=== PATIENT | male | born 1990 | race Hispanic/Latino ===

== ENCOUNTER 2017-10-23 14:22 | Emergency (ER) | payer SELFPAY ==
[2017-10-23 15:15] VITALS: BP 146/75
--- NOTE | 2017-10-23 16:38 | Emergency Department Report ---
ED Male HPI - General Chief complaint: Urogenital-Male Stated complaint: STD Time Seen by Provider: 10/23/17 16:22 Source: patient Mode of arrival: Ambulatory Limitations: No Limitations - History of Present Illness Initial comments: This is a 27 y.o. male presents for STD screening. His girlfriend told him to get tested because her pH is off and something is wrong. Denies discharge, frequency, urgency, abdominal pain, and back pain. Don't think he need to be treated for something because there is "nothing coming out my pee whole". Admits to STD exposure, history of G/C twice and had discharge and stomach cramps. He is not having those symptoms this time. Radiation: none Severity scale (0 -10): 0 Improves with: none Worsens with: none denies other symptoms - Related Data Sexually active: Yes Allergies Allergy/AdvReac Type Severity Reaction Status Date / Time No Known Allergies Allergy Unverified 10/23/17 15:15 ED Review of Systems ROS: Stated complaint: STD Other details as noted in HPI Constitutional: denies: chills, fever Respiratory: denies: cough, shortness of breath, wheezing Cardiovascular: denies: chest pain, palpitations Gastrointestinal: denies: abdominal pain, nausea, diarrhea Musculoskeletal: denies: back pain, joint swelling, arthralgia Neurological: denies: headache, weakness, paresthesias ED Past Medical Hx - Past Medical History Previous Medical History?: No - Surgical History Past Surgical History?: No - Social History Smoking Status: Current Every Day Smoker Substance Use Type: None ED Physical Exam - General Limitations: No Limitations General appearance: alert, in no apparent distress - Respiratory Respiratory exam: Present: normal lung sounds bilaterally. Absent: respiratory distress - Cardiovascular Cardiovascular Exam: Present: regular rate, normal rhythm. Absent: systolic murmur, diastolic murmur, rubs, gallop - GI/Abdominal GI/Abdominal exam: Present: soft, normal bowel sounds. Absent: distended, tenderness, guarding, rebound, rigid, mass, bruit, pulsatile mass - Neurological Exam Neurological exam: Present: alert, oriented X3, normal gait - Skin Skin exam: Present: warm, dry, intact, normal color. Absent: rash ED Course Vital Signs 10/23/17 15:11 Temperature 98.3 F Pulse Rate 86 Respiratory 18 Rate Blood Pressure 146/75 O2 Sat by Pulse 99 Oximetry ED Medical Decision Making - Medical Decision Making This is a 27 y.o. male presents for STD screening. Denies discharge, frequency, urgency, abdominal pain, and back pain. Patient was examined by me. Patient refused empirical treatment. Informed to f/u with [facility] or [facility] for STD screening. Discussed prevention options. Discharged home F/U with PCP or Health Department. Critical care attestation.: If time is entered above; I have spent that time in minutes in the direct care of this critically ill patient, excluding procedure time. ED Disposition Clinical Impression: Potential exposure to STD Disposition: DC-01 TO HOME OR SELFCARE Is pt being admited?: No Does the pt Need Aspirin: No Condition: Stable Instructions: Safe Sex (ED), Sexually Transmitted Diseases (ED) Additional Instructions: Continue safe sexual intercourse. Follow up with Primary Care Provider or health department. Referrals: [facility] [Outside] - 3-5 Days [facility] [place] [Outside] - 3-5 Days [facility] [Outside] - 3-5 Days [facility] [Outside] - 3-5 Days [facility] [Outside] - 3-5 Days Time of Disposition: 16:43 Print Language: JORDANIAN
== END 2017-10-23 16:50 | disposition home or self-care (01) ==
LOC: ED 14:22
DX: Z20.2 Contact with and (suspected) exposure to infections with a predominantly sexual mode of transmission (principal); F17.200 Nicotine dependence, unspecified, uncomplicated
CPT/HCPCS: 99282